=== PATIENT | male | born 1970 | race Hispanic/Latino ===

== ENCOUNTER 2019-11-03 21:24 | Emergency (ER) | payer SELFPAY ==
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
[2019-11-03] MEDS ORDERED: SODIUM CHLORIDE 0.9% 1000 ML 1,000 ML IV ONE (22:39)
[2019-11-03] MEDS ORDERED: HYDROmorphone 1 MG/1 ML INJ IV ONE (22:39)
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
--- NOTE | 2019-11-03 23:26 | XRay Report ---
LEFT RIBS 5 VIEWS INDICATION / CLINICAL INFORMATION: rib pain. fell on left ribs. COMPARISON: None available. FINDINGS: RIBS: Acute appearing, nondisplaced fractures of the posterior and lateral 9th rib. Several bilateral old, healed rib fractures. LUNGS: No acute findings. No pneumothorax. Signer Name: Yesy Potter MD Signed: 11/03/2019 11:22 PM Workstation Name: [id number]
[2019-11-03] MEDS ORDERED: TETANUS,DIPH,PERTUSS(ACELL) VACCINE 0.5 ML SYRINGE IM ONE (23:50)
[2019-11-04] MEDS ORDERED: TETANUS,DIPH,PERTUSS(ACELL) VACCINE 0.5 ML SYRINGE IM ONE (03:30)
[2019-11-04 03:44] VITALS: BP 119/72
== END 2019-11-04 06:47 | disposition home or self-care (01) ==
LOC: ED 21:24
DX: S22.32XA Fracture of one rib, left side, initial encounter for closed fracture (principal); S13.8XXA Sprain of joints and ligaments of other parts of neck, initial encounter; S00.83XA Contusion of other part of head, initial encounter; F17.200 Nicotine dependence, unspecified, uncomplicated; F12.90 Cannabis use, unspecified, uncomplicated; Z72.89 Other problems related to lifestyle; Z79.899 Other long term (current) drug therapy; Y04.8XXA Assault by other bodily force, initial encounter; Y93.89 Activity, other specified; Y92.89 Other specified places as the place of occurrence of the external cause; Y99.8 Other external cause status
CPT/HCPCS: 70450; 71101; 72125; 90471; 90715; 96374; 99284; J1170; J7030